=== PATIENT | female | born 1950 | race Caucasian/White ===

== ENCOUNTER → 2019-07-07 12:09 | Outpatient (BNVA) | payer MEDICARE, OTHER, SELFPAY | PROVIDERS: Family Provider Nurse Practitioner Family; Visit Provider Nurse Practitioner Family | DX: S90.859A Superficial foreign body, unspecified foot, initial encounter (principal) | CPT/HCPCS: 73630 ==

== ENCOUNTER → 2019-07-08 11:03 | Outpatient (BNVA) | payer MEDICARE, OTHER, SELFPAY | PROVIDERS: Family Provider Nurse Practitioner Family; Referring Provider Nurse Practitioner Family; Visit Provider Podiatrist Foot & Ankle Surgery | DX: M79.673 Pain in unspecified foot (principal); M77.31 Calcaneal spur, right foot | CPT/HCPCS: 73650; 87070; 87205 ==

== ENCOUNTER → 2020-01-20 10:07 | Outpatient (BNVA) | payer MEDICARE, OTHER, SELFPAY | PROVIDERS: Family Provider Nurse Practitioner Family; PCP Family Medicine; Referring Provider Family Medicine; Visit Provider Specialist | DX: R42 Dizziness and giddiness (principal); G62.9 Polyneuropathy, unspecified | CPT/HCPCS: 99204 ==

== ENCOUNTER 2023-07-23 10:50 | Outpatient (CLI) | payer MEDICARE, OTHER, SELFPAY ==
--- NOTE | 2023-07-23 10:57 | MR_ITS ---
WS: [id number] MRI LEFT KNEE NONCONTRAST TECHNIQUE: Axial PD, coronal PD fat sat, coronal PD, sagittal PD, and sagittal PD fat-sat images obta ined. CLINICAL INFORMATION: INJURY OF L KNEE COMPARISON: None. FINDINGS: Distal quadriceps and patellar tendons are intact. Hypertrophic patella. Moderate suprapatellar effus ion. Advanced chondromalacia patella. Small amount of subchondral edema. Lobulated popliteal cyst harman suring 5.2 x 1.6 cm. Hypertrophic changes along the joint line. Medial and lateral collateral ligaments are intact. Peripheral extrusion of the medial meniscus. Prox imal fibula appears normal. Advanced degenerative narrowing medial joint compartment with edema in th e femoral condyle and tibial plateau. Blunting of the medial meniscus with tearing and intrasubstance degenerative change. Horizontal tear involving the posterior horn medial meniscus extending to the p eriphery with blunting of the meniscal root. Lateral meniscus appears intact. MR/MR knee LT wo con* [id number] IMPRESSION: 1. Normal ACL and PCL. 2. Moderate joint effusion with prepatellar soft tissue edema. Soft tissue kourtney ma about the knee. 3. Complex tear involving the posterior horn medial meniscus extending to the periphery and meniscal root. Blunting of the medial meniscus with advanced join t space narrowing medial joint compartment. 4. Grade IV chondromalacia medial joint compartment with subchondral edema. Pe ripheral extrusion of the medial meniscus. 5. Medial and lateral collateral ligaments appear intact. 6. Lobulated popliteal cyst measuring 5.2 x 1.6 cm 7. Advanced chondromalacia patella. Outbridge grading: grade IV: full-thickness cartilage loss with underlying bone reactive changes
== END 2023-07-23 10:51 | disposition home or self-care (01) ==
LOC: RAD 10:50
PROVIDERS: PCP Family Medicine; Visit Provider Nurse Practitioner Family
DX: S83.232A Complex tear of medial meniscus, current injury, left knee, initial encounter (principal); X58.XXXA Exposure to other specified factors, initial encounter; M71.22 Synovial cyst of popliteal space [Baker], left knee; M22.42 Chondromalacia patellae, left knee
CPT/HCPCS: 73721